=== PATIENT | female | born 1960 | race Caucasian/White ===

== ENCOUNTER 2020-08-05 07:40 | Outpatient (REF) | payer BC, SELFPAY ==
[2020-08-05 08:21] LABS: MANUAL DIFF FLAG NO
[2020-08-05 08:31] LABS: Basophils Absolute Auto 0.1 X10*3/uL (0.0-0.2); Basophils Percent Auto 1.2 % (0-2); Eosinophils Absolute Auto 0.2 X10*3/uL (0.0-0.4); Eosinophils Percent Auto 5.7 % (0-4); Hematocrit 40.8 % (37-47); Hemoglobin 13.5 g/dl (12.0-16.0); Imm Gran Abs Auto 0.01 X10*3/uL (0.00-0.03); Imm Gran Pct Auto 0.2 % (0.0-0.4); Lymphocytes Absolute Auto 0.7 X10*3/uL (1.2-4.9); Lymphocytes Percent Auto 18.2 % (20-40); Mean Corpuscular HGB Conc 33.1 g/dl (31.0-35.0); Mean Corpuscular Hemoglobin 31.3 pg (27.0-33.0); Mean Corpuscular Volume 94.4 fL (80-98); Mean Platelet Volume 9.7 fL (9.4-12.3); Monocytes Absolute Auto 0.3 X10*3/uL (0.1-1.2); Neutrophils Absolute Auto 2.7 X10*3/uL (2.0-8.3); Neutrophils Percent Auto 66.7 % (45-73); Platelet Count 256 X10*3/uL (160-400); Red Blood Count 4.32 X10*6/uL (4.20-5.50); Red Cell Distribution Width 13.6 % (11.0-16.0)
[2020-08-05 08:42] LABS: Glucose Urine UA NEG (NEG); Leukocyte Esterase Urine NEG (NEG); Nitrite Urine NEG (NEG); Specific Gravity - Urine 1.025 (1.005-1.025); Urine Blood NEG (NEG); Urine Ketones NEG (NEG); Urine Protein NEG (NEG-TRACE)
[2020-08-05 08:45] LABS: Appearance Urine CLEAR; Color Urine YELLOW
[2020-08-05 08:56] LABS: Estimated Average Glucose 103 mg/dL; Hemoglobin A1C 118.4068 umol/L; Hemoglobin A1c % 5.2 %
[2020-08-05 09:19] LABS: Alanine Aminotransferase 11 U/L (0-31); Albumin Level 4.4 g/dL (3.5-5.0); Alkaline Phosphatase 67 U/L (39-117); Anion Gap 13 (12-20); Aspartate Amino Transferase 19 U/L (5-31); Bilirubin Total 0.9 mg/dL (0.0-1.0); Blood Urea Nitrogen 12 mg/dL (9-16); Calcium 8.9 mg/dL (8.4-10.2); Carbon Dioxide 27 mmol/L (22-29); Chloride 105 mmol/L (96-108); Cholesterol 197 mg/dL; Estimated Glomerular Filt Rate > 60; Glucose Fasting 105 mg/dL (60-99); HDL Cholesterol 67 mg/dL; LDL Cholesterol Calculated 121 mg/dl; Potassium 4.3 mmol/L (3.3-5.1); Sodium 141 mmol/L (135-145); Total Protein 7.3 g/dL (6.5-8.0); Triglycerides 46 mg/dL
[2020-08-05 09:26] LABS: Vitamin D 25-OH Total 32.2 ng/mL (>30)
[2020-08-05 10:12] LABS: Creatinine Urine 102.07 mg/dL; Microalbum/Creatinine Ratio Ur 11.7 ug/mg cr
== END 2020-08-05 07:41 | disposition home or self-care (01) ==
LOC: HO.LAB 07:40
PROVIDERS: PCP Internal Medicine; Visit Provider Internal Medicine
DX: Z00.00 Encounter for general adult medical examination without abnormal findings (principal); E55.9 Vitamin D deficiency, unspecified; R73.03 Prediabetes
CPT/HCPCS: 36415; 80053; 80061; 81003; 82043; 82306; 83036; 85025

== ENCOUNTER 2020-08-11 07:46 | Outpatient (REF) | payer BC, SELFPAY ==
--- NOTE | ~2020-08-11 | MM_ITS ---
EXAMINATION: MM SCREENING DIGITAL BREAST TOMOSYNTHESIS, BILATERAL CLINICAL INFORMATION: Screening. Asymptomatic. The lifetime risk of breast cancer based on the Tyrer-Cuzick Model is 10%. COMPARISON: Mammography: 09/26/2018, 09/24/2017 TECHNIQUE: Digital breast tomosynthesis is performed in both the craniocaudal and mediolateral oblique views along with computer-aided detection (CAD). Synthesized 2D images are generated from the tomosynthesis. FINDINGS: There are scattered areas of fibroglandular density (ACR BI-RADS breast composition Category b). There are no significant masses, abnormal calcifications, or other abnormalities. The axilla and skin contours are unremarkable. MM/MM tomosynthesis screening BI IMPRESSION: No mammographic evidence of malignancy. ASSESSMENT: BI-RADS 1: Negative RECOMMENDATION: Routine annual mammography screening. This patient's information was entered into a reminder system with a target due date for their next mammogram.
== END 2020-08-11 07:47 | disposition home or self-care (01) ==
LOC: HO.MAMMO 07:46
PROVIDERS: Absent Provider Obstetrics & Gynecology; PCP Internal Medicine; Visit Provider Internal Medicine
DX: Z12.31 Encounter for screening mammogram for malignant neoplasm of breast (principal)
CPT/HCPCS: 77063; 77067

== ENCOUNTER 2020-11-14 10:25 | Outpatient (REF) | payer BC, SELFPAY ==
[2020-11-14 10:28] LABS: MANUAL DIFF FLAG NO
[2020-11-14 10:37] LABS: Eosinophils Absolute Auto 0.3 X10*3/uL (0.0-0.4); Eosinophils Percent Auto 6.9 % (0-4); Hematocrit 41.4 % (37-47); Hemoglobin 13.4 g/dl (12.0-16.0); Imm Gran Abs Auto 0.01 X10*3/uL (0.00-0.03); Imm Gran Pct Auto 0.2 % (0.0-0.4); Lymphocytes Absolute Auto 1.1 X10*3/uL (1.2-4.9); Mean Corpuscular HGB Conc 32.4 g/dl (31.0-35.0); Mean Corpuscular Hemoglobin 30.7 pg (27.0-33.0); Mean Corpuscular Volume 94.7 fL (80-98); Mean Platelet Volume 9.7 fL (9.4-12.3); Monocytes Absolute Auto 0.4 X10*3/uL (0.1-1.2); Monocytes Percent Auto 10.3 % (2-11); Neutrophils Absolute Auto 2.3 X10*3/uL (2.0-8.3); Neutrophils Percent Auto 54.6 % (45-73); Platelet Count 255 X10*3/uL (160-400); Red Blood Count 4.37 X10*6/uL (4.20-5.50); Red Cell Distribution Width 12.8 % (11.0-16.0); White Blood Count 4.2 X10*3/uL (4.8-10.8)
== END 2020-11-14 10:26 | disposition home or self-care (01) ==
LOC: HO.LNP 10:25
PROVIDERS: Visit Provider Internal Medicine
DX: D70.9 Neutropenia, unspecified (principal)
CPT/HCPCS: 85025

== ENCOUNTER 2021-08-18 10:31 | Outpatient (REF) | payer BC, SELFPAY ==
[2021-08-18 10:35] LABS: MANUAL DIFF FLAG NO
[2021-08-18 10:55] LABS: Basophils Absolute Auto 0.1 X10*3/uL (0.0-0.2); Basophils Percent Auto 1.4 % (0-2); Eosinophils Absolute Auto 0.2 X10*3/uL (0.0-0.4); Eosinophils Percent Auto 6.6 % (0-4); Hematocrit 41.3 % (37.0-47.0); Hemoglobin 13.8 g/dl (12.0-16.0); Imm Gran Abs Auto 0.01 X10*3/uL (0.00-0.03); Imm Gran Pct Auto 0.3 % (0.0-0.4); Lymphocytes Absolute Auto 0.7 X10*3/uL (1.2-4.9); Lymphocytes Percent Auto 20.2 % (20-40); Mean Corpuscular HGB Conc 33.4 g/dl (31.0-35.0); Mean Corpuscular Hemoglobin 31.4 pg (27.0-33.0); Mean Corpuscular Volume 94.1 fL (80.0-98.0); Mean Platelet Volume 10.5 fL (9.4-12.3); Monocytes Absolute Auto 0.4 X10*3/uL (0.1-1.2); Monocytes Percent Auto 9.9 % (2-11); Neutrophils Absolute Auto 2.2 x10*3/uL (2.0-8.3); Neutrophils Percent Auto 61.6 % (45-73); Platelet Count 243 X10*3/uL (160-400); Red Blood Count 4.39 X10*6/uL (4.20-5.50); Red Cell Distribution Width 12.7 % (11.0-16.0); White Blood Count 3.6 X10*3/uL (4.8-10.8)
[2021-08-18 10:59] LABS: Estimated Average Glucose 108 mg/dL; Hemoglobin A1c % 5.4 %
[2021-08-18 11:02] LABS: Appearance Urine CLEAR; Color Urine YELLOW; Glucose Urine UA NEG (NEG); Leukocyte Esterase Urine NEG (NEG); Nitrite Urine NEG (NEG); Urine Blood NEG (NEG); Urine Ketones NEG (NEG); Urine Protein NEG (NEG-TRACE)
[2021-08-18 11:05] LABS: Creatinine Urine 95.52 mg/dL; Microalbumin Urine < 5.0 mg/L
[2021-08-18 11:07] LABS: Alanine Aminotransferase 14 U/L (0-31); Albumin Level 4.4 g/dL (3.5-5.0); Alkaline Phosphatase 64 U/L (39-117); Anion Gap 13 (12-20); Aspartate Amino Transferase 21 U/L (5-31); Bilirubin Total 1.3 mg/dL (0.0-1.0); Blood Urea Nitrogen 19 mg/dL (9-16); Calcium 9.4 mg/dL (8.4-10.2); Carbon Dioxide 25 mmol/L (22-29); Chloride 104 mmol/L (96-108); Cholesterol 208 mg/dL; Estimated Glomerular Filt Rate > 60; Glucose Fasting 108 mg/dL (60-99); HDL Cholesterol 72 mg/dL; LDL Cholesterol Calculated 121 mg/dl; Potassium 4.2 mmol/L (3.3-5.1); Sodium 138 mmol/L (135-145); Total Protein 7.2 g/dL (6.5-8.0); Triglycerides 77 mg/dL
[2021-08-18 11:31] LABS: Vitamin D 25-OH Total 26.4 ng/mL (>30)
== END 2021-08-18 10:32 | disposition home or self-care (01) ==
LOC: HO.LNP 10:31
PROVIDERS: PCP Internal Medicine; Visit Provider Internal Medicine
DX: Z00.00 Encounter for general adult medical examination without abnormal findings (principal); R59.1 Generalized enlarged lymph nodes; E55.9 Vitamin D deficiency, unspecified; R73.03 Prediabetes; D70.9 Neutropenia, unspecified
CPT/HCPCS: 80053; 80061; 81003; 82043; 82306; 83036; 85025

== ENCOUNTER 2021-09-17 07:44 | Outpatient (REF) | payer BC, SELFPAY ==
--- NOTE | ~2021-09-17 | MM_ITS ---
EXAMINATION: MM SCREENING DIGITAL BREAST TOMOSYNTHESIS, BILATERAL CLINICAL INFORMATION: Screening. Asymptomatic. The lifetime risk of breast cancer based on the Tyrer-Cuzick Model is 11.7%. COMPARISON: Mammography: August 11, 2020 and studies dating back to December 16, 2011 TECHNIQUE: Digital breast tomosynthesis is performed in both the craniocaudal and mediolateral oblique views along with computer-aided detection (CAD). Synthesized 2D images are generated from the tomosynthesis. FINDINGS: There are scattered areas of fibroglandular density (ACR BI-RADS breast composition Category b). There are no significant masses, abnormal calcifications, or other abnormalities. MM/MM tomosynthesis screening BI IMPRESSION: There are no significant changes from prior study. ASSESSMENT: BI-RADS 1: Negative RECOMMENDATION: Routine annual mammography screening. This patient's information was entered into a reminder system with a target due date for their next mammogram.
== END 2021-09-17 07:45 | disposition home or self-care (01) ==
LOC: HO.MAMMO 07:44
PROVIDERS: Absent Provider Obstetrics & Gynecology; PCP Internal Medicine; Visit Provider Internal Medicine
DX: Z12.31 Encounter for screening mammogram for malignant neoplasm of breast (principal)
CPT/HCPCS: 77063; 77067

== ENCOUNTER 2021-09-21 11:59 | Outpatient (REF) | payer BC, SELFPAY ==
[2021-09-21 12:03] LABS: MANUAL DIFF FLAG NO
[2021-09-21 12:18] LABS: Basophils Percent Auto 0.9 % (0-2); Eosinophils Absolute Auto 0.3 X10*3/uL (0.0-0.4); Eosinophils Percent Auto 6.2 % (0-4); Hematocrit 42.4 % (37.0-47.0); Hemoglobin 14.1 g/dl (12.0-16.0); Imm Gran Abs Auto 0.01 X10*3/uL (0.00-0.03); Imm Gran Pct Auto 0.2 % (0.0-0.4); Lymphocytes Absolute Auto 1.1 X10*3/uL (1.2-4.9); Lymphocytes Percent Auto 26.3 % (20-40); Mean Corpuscular HGB Conc 33.3 g/dl (31.0-35.0); Mean Corpuscular Hemoglobin 31.5 pg (27.0-33.0); Mean Corpuscular Volume 94.6 fL (80.0-98.0); Mean Platelet Volume 10.5 fL (9.4-12.3); Monocytes Absolute Auto 0.5 X10*3/uL (0.1-1.2); Monocytes Percent Auto 11.1 % (2-11); Neutrophils Absolute Auto 2.4 x10*3/uL (2.0-8.3); Neutrophils Percent Auto 55.3 % (45-73); Platelet Count 241 X10*3/uL (160-400); Red Blood Count 4.48 X10*6/uL (4.20-5.50); Red Cell Distribution Width 12.9 % (11.0-16.0); White Blood Count 4.3 X10*3/uL (4.8-10.8)
== END 2021-09-21 12:00 | disposition home or self-care (01) ==
LOC: HO.LNP 11:59
PROVIDERS: PCP Internal Medicine; Visit Provider Internal Medicine
DX: D70.9 Neutropenia, unspecified (principal)
CPT/HCPCS: 85025

== ENCOUNTER 2022-08-23 10:53 | Outpatient (REF) | payer BC, SELFPAY ==
[2022-08-23 11:13] LABS: MANUAL DIFF FLAG NO
[2022-08-23 11:22] LABS: Basophils Percent Auto 0.9 % (0-2); Eosinophils Absolute Auto 0.2 X10*3/uL (0.0-0.4); Eosinophils Percent Auto 5.1 % (0-4); Hematocrit 41.8 % (37.0-47.0); Hemoglobin 13.8 g/dl (12.0-16.0); Imm Gran Abs Auto 0.01 X10*3/uL (0.00-0.03); Imm Gran Pct Auto 0.2 % (0.0-0.4); Lymphocytes Absolute Auto 0.9 X10*3/uL (1.2-4.9); Lymphocytes Percent Auto 20.7 % (20-40); Mean Corpuscular Hemoglobin 30.9 pg (27.0-33.0); Mean Corpuscular Volume 93.7 fL (80.0-98.0); Mean Platelet Volume 10.2 fL (9.4-12.3); Monocytes Absolute Auto 0.4 X10*3/uL (0.1-1.2); Monocytes Percent Auto 8.4 % (2-11); Neutrophils Absolute Auto 2.9 x10*3/uL (2.0-8.3); Neutrophils Percent Auto 64.7 % (45-73); Platelet Count 253 X10*3/uL (160-400); Red Blood Count 4.46 X10*6/uL (4.20-5.50); Red Cell Distribution Width 12.8 % (11.0-16.0); White Blood Count 4.5 X10*3/uL (4.8-10.8)
[2022-08-23 11:29] LABS: Estimated Average Glucose 105 mg/dL; Hemoglobin A1c % 5.3 %
[2022-08-23 11:30] LABS: Appearance Urine Clear; Color Urine Yellow; Glucose Urine UA Negative (Negative); Leukocyte Esterase Urine Trace (Negative); Nitrite Urine Negative (Negative); UMIC TRIGGER UACC YES; Urine Blood Negative (Negative); Urine Ketones Negative (Negative); Urine Protein Negative (Neg-Trace)
[2022-08-23 11:33] LABS: Bacteria Urine None Seen (None Seen); Hyaline Casts Urine 0-2 /LPF (0-2); Squamous Epithelial Cell Urine 0-2 /HPF (0-2); WBC Urine 0-5 /HPF (0-5)
[2022-08-23 11:39] LABS: Alanine Aminotransferase 17 U/L (0-31); Albumin Level 4.5 g/dL (3.5-5.0); Alkaline Phosphatase 69 U/L (39-117); Anion Gap 11 (12-20); Aspartate Amino Transferase 23 U/L (5-31); Bilirubin Total 1.5 mg/dL (0.0-1.0); Blood Urea Nitrogen 14 mg/dL (9-16); Calcium 9.5 mg/dL (8.4-10.2); Carbon Dioxide 29 mmol/L (22-29); Chloride 105 mmol/L (96-108); Cholesterol 230 mg/dL; Estimated Glomerular Filt Rate > 60; Glucose Fasting 92 mg/dL (60-99); HDL Cholesterol 75 mg/dL; LDL Cholesterol Calculated 145 mg/dl; Potassium 4.2 mmol/L (3.3-5.1); Sodium 141 mmol/L (135-145); Total Protein 7.4 g/dL (6.5-8.0); Triglycerides 51 mg/dL
[2022-08-23 11:53] LABS: Vitamin D 25-OH Total 23.2 ng/mL (>30)
[2022-08-23 12:08] LABS: Creatinine Urine 121.96 mg/dL; Microalbum/Creatinine Ratio Ur 4.9 ug/mg cr
== END 2022-08-23 10:54 | disposition home or self-care (01) ==
LOC: HO.LNP 10:53
PROVIDERS: Visit Provider Internal Medicine
DX: Z00.00 Encounter for general adult medical examination without abnormal findings (principal); E55.9 Vitamin D deficiency, unspecified; R73.03 Prediabetes; D70.9 Neutropenia, unspecified
CPT/HCPCS: 80053; 80061; 81001; 82043; 82306; 83036; 85025

== ENCOUNTER 2022-12-17 07:25 | Outpatient (REF) | payer BC, SELFPAY ==
--- NOTE | ~2022-12-17 | MM_ITS ---
EXAMINATION: MM SCREENING DIGITAL BREAST TOMOSYNTHESIS, BILATERAL CLINICAL INFORMATION: Screening. Asymptomatic. The lifetime risk of breast cancer based on the Tyrer-Cuzick Model is 9%. COMPARISON: Mammography: 09/17/2021, 08/11/2020, 09/26/2018 TECHNIQUE: Digital breast tomosynthesis is performed in both the craniocaudal and mediolateral oblique views along with computer-aided detection (CAD). Synthesized 2D images are generated from the tomosynthesis. FINDINGS: There are scattered areas of fibroglandular density (ACR BI-RADS breast composition Category b). There are no significant masses, abnormal calcifications, or other abnormalities. Parenchymal pattern is similar to prior studies. There is no developing density or architectural abnormality. The axilla and skin contours are unremarkable. No significant changes. MM/MM tomosynthesis screening BI IMPRESSION: No mammographic evidence of malignancy. ASSESSMENT: BI-RADS 1: Negative RECOMMENDATION: Routine annual mammography screening. This patient's information was entered into a reminder system with a target due date for their next mammogram.
== END 2022-12-17 07:26 | disposition home or self-care (01) ==
LOC: HO.MAMMO 07:25
PROVIDERS: PCP Internal Medicine; Referring Provider Obstetrics & Gynecology; Visit Provider Internal Medicine
DX: Z12.31 Encounter for screening mammogram for malignant neoplasm of breast (principal)
CPT/HCPCS: 77063; 77067

== ENCOUNTER 2023-08-22 11:41 | Outpatient (REF) | payer BC, SELFPAY ==
[2023-08-22 11:44] LABS: MANUAL DIFF FLAG NO
[2023-08-22 11:58] LABS: Basophils Absolute Auto 0.1 X10*3/uL (0.0-0.2); Basophils Percent Auto 1.4 % (0-2); Eosinophils Absolute Auto 0.2 X10*3/uL (0.0-0.4); Eosinophils Percent Auto 4.7 % (0-4); Hematocrit 41.4 % (37.0-47.0); Hemoglobin 13.8 g/dl (12.0-16.0); Imm Gran Abs Auto 0.01 X10*3/uL (0.00-0.03); Imm Gran Pct Auto 0.2 % (0.0-0.4); Lymphocytes Absolute Auto 0.9 X10*3/uL (1.2-4.9); Lymphocytes Percent Auto 20.8 % (20-40); Mean Corpuscular HGB Conc 33.3 g/dl (31.0-35.0); Mean Corpuscular Hemoglobin 31.5 pg (27.0-33.0); Mean Corpuscular Volume 94.5 fL (80.0-98.0); Mean Platelet Volume 10.2 fL (9.4-12.3); Monocytes Absolute Auto 0.4 X10*3/uL (0.1-1.2); Monocytes Percent Auto 9.3 % (2-11); Neutrophils Absolute Auto 2.7 x10*3/uL (2.0-8.3); Neutrophils Percent Auto 63.6 % (45-73); Platelet Count 281 X10*3/uL (160-400); Red Blood Count 4.38 X10*6/uL (4.20-5.50); Red Cell Distribution Width 13.2 % (11.0-16.0); White Blood Count 4.3 X10*3/uL (4.8-10.8)
[2023-08-22 11:59] LABS: Appearance Urine Clear; Color Urine Yellow; Glucose Urine UA Negative (Negative); Leukocyte Esterase Urine Negative (Negative); Nitrite Urine Negative (Negative); PH 5.5 (5.0-9.0); Urine Blood Negative (Negative); Urine Ketones Negative (Negative); Urine Protein Negative (Neg-Trace)
[2023-08-22 12:02] LABS: Bacteria Urine None Seen (None Seen); Hyaline Casts Urine 0-2 /LPF (0-2); RBC Urine 0-2 /HPF (0-2); Squamous Epithelial Cell Urine 0-2 /HPF (0-2); WBC Urine 0-5 /HPF (0-5)
[2023-08-22 12:13] LABS: Estimated Average Glucose 97 mg/dL
[2023-08-22 12:30] LABS: Alanine Aminotransferase 15 U/L (0-31); Albumin Level 4.3 g/dL (3.5-5.0); Alkaline Phosphatase 62 U/L (39-117); Anion Gap 12 (12-20); Aspartate Amino Transferase 23 U/L (5-31); Bilirubin Total 0.8 mg/dL (0.0-1.0); Blood Urea Nitrogen 18 mg/dL (9-16); Calcium 9.4 mg/dL (8.4-10.2); Carbon Dioxide 25 mmol/L (22-29); Chloride 106 mmol/L (96-108); Estimated Glomerular Filt Rate > 60; Glucose Fasting 94 mg/dL (60-99); Potassium 4.4 mmol/L (3.3-5.1); Sodium 139 mmol/L (135-145); Total Protein 7.2 g/dL (6.5-8.0)
[2023-08-22 12:36] LABS: Vitamin D 25-OH Total 31.6 ng/mL (>30)
[2023-08-22 13:15] LABS: Microalbum/Creatinine Ratio Ur 5.4 ug/mg cr (<30)
== END 2023-08-22 11:42 | disposition home or self-care (01) ==
LOC: HO.LNP 11:41
PROVIDERS: Visit Provider Internal Medicine
DX: Z00.00 Encounter for general adult medical examination without abnormal findings (principal); E55.9 Vitamin D deficiency, unspecified; R73.03 Prediabetes; D70.9 Neutropenia, unspecified
CPT/HCPCS: 80053; 81001; 82043; 82306; 82570; 83036; 85025

== ENCOUNTER 2023-08-29 11:09 | Outpatient (REF) | payer BC, SELFPAY ==
[2023-08-29 11:54] LABS: Cholesterol 213 mg/dL (<200); HDL Cholesterol 76 mg/dL (>40); LDL Cholesterol Calculated 127 mg/dL (<100); Triglycerides 50 mg/dL (<150)
== END 2023-08-29 11:10 | disposition home or self-care (01) ==
LOC: HO.LNP 11:09
PROVIDERS: Visit Provider Internal Medicine
DX: E78.00 Pure hypercholesterolemia, unspecified (principal)
CPT/HCPCS: 80061

== ENCOUNTER 2024-10-04 09:54 | Outpatient (REF) | payer OTHER, SELFPAY ==
[2024-10-04 09:58] LABS: MANUAL DIFF FLAG NO
[2024-10-04 10:16] LABS: Basophils Percent Auto 0.8 % (0-2); Eosinophils Absolute Auto 0.1 X10*3/uL (0.0-0.4); Eosinophils Percent Auto 1.9 % (0-4); Hematocrit 40.6 % (37.0-47.0); Hemoglobin 13.7 g/dl (12.0-16.0); Imm Gran Abs Auto 0.02 X10*3/uL (0.00-0.03); Imm Gran Pct Auto 0.4 % (0.0-0.4); Lymphocytes Absolute Auto 1.1 X10*3/uL (1.2-4.9); Lymphocytes Percent Auto 22.8 % (20-40); Mean Corpuscular HGB Conc 33.7 g/dl (31.0-35.0); Mean Corpuscular Hemoglobin 31.1 pg (27.0-33.0); Mean Corpuscular Volume 92.1 fL (80.0-98.0); Mean Platelet Volume 9.3 fL (9.4-12.3); Monocytes Absolute Auto 0.3 X10*3/uL (0.1-1.2); Monocytes Percent Auto 7.1 % (2-11); Neutrophils Absolute Auto 3.2 x10*3/uL (2.0-8.3); Platelet Count 400 X10*3/uL (160-400); Red Blood Count 4.41 X10*6/uL (4.20-5.50); Red Cell Distribution Width 12.7 % (11.0-16.0); White Blood Count 4.8 X10*3/uL (4.8-10.8)
[2024-10-04 10:30] LABS: Estimated Average Glucose 108 mg/dL; Hemoglobin A1C 131.1801 umol/L; Hemoglobin A1c % 5.4 % (<6.0); Total Hemoglobin (HGBA1C) 3671.5637 umol/L
[2024-10-04 10:41] LABS: Appearance Urine Clear; Color Urine Yellow; Glucose Urine UA Negative (Negative); Leukocyte Esterase Urine Trace (Negative); Nitrite Urine Negative (Negative); PH 5.5 (5.0-9.0); UMIC TRIGGER UACC YES; Urine Blood Negative (Negative); Urine Ketones Negative (Negative); Urine Protein Negative (Neg-Trace)
[2024-10-04 10:47] LABS: Alanine Aminotransferase 16 U/L (0-31); Albumin Level 4.2 g/dL (3.5-5.0); Alkaline Phosphatase 81 U/L (39-117); Anion Gap 14 (12-20); Aspartate Amino Transferase 28 U/L (5-31); Bilirubin Total 0.7 mg/dL (0.0-1.0); Blood Urea Nitrogen 13 mg/dL (9-16); Calcium 9.4 mg/dL (8.4-10.2); Carbon Dioxide 25 mmol/L (22-29); Chloride 107 mmol/L (96-108); Cholesterol 161 mg/dL (<200); Estimated Glomerular Filt Rate > 60; Glucose Fasting 98 mg/dL (60-99); HDL Cholesterol 48 mg/dL (>40); LDL Cholesterol Calculated 103 mg/dL (<100); Microalbum/Creatinine Ratio Ur 5.6 ug/mg cr (<30); Potassium 4.4 mmol/L (3.3-5.1); Sodium 142 mmol/L (135-145); Total Protein 7.6 g/dL (6.5-8.0); Triglycerides 50 mg/dL (<150)
[2024-10-04 11:19] LABS: Bacteria Urine 2+ (None Seen); Hyaline Casts Urine 0-2 /LPF (0-2); RBC Urine 0-2 /HPF (0-2); WBC Urine 0-5 /HPF (0-5)
--- OUTSIDE RECORDS SUMMARY | 2024-10-04 11:24 | XMS_ITS ---
Author Organization [facility] Address [address] [place] [address] Care Team Providers Care Rotary Shear Cutter Name Role Phone Rickie Spicer MD Primary Care Provider Rod Crain [facility] [phone] Social History Tobacco Use: Social History Observation Description Date Details (start date - stop date) Never Smoker NA - NA Tobacco Use/Smoking Question Answer Notes Are you a: nonsmoker Additional Findings: Tobacco Non-User Current no n-smoker Alcohol Screen Question Answer Notes Did you have a drink containing alcohol in the p ast year? Yes Points 0 Interpretation Negative Tobacco use other than smoking: Question Answer Notes Are you an other tobacco user? No Vital Signs Height 5 ft 2 in in 08/31/2023 Weight 131 lbs 08/31/2023 BMI 23.96 kg/m2 08/31/2023 Encounters Encounter Location Date Provider Diagnosis [facility] [address] [place] [address] 08/31/2023 Rod Srinivasan Plan Of Treatment No Information Progress Notes * PATSYGonzalezeDOB:1960 (64 yo F)Acc No.[id number]:08/31/2023 Progress Notes Patient:?Belle GARNER Provider:Arun Srinivasan DPM :1960???Age:63 Y???Sex:Female D ate:08/31/2023 [address] [place] [place] Pcp:Rickie Spicer MD Subjective: * Chief Complaints: * ??? * ROS:?General/Constitutional:?Nausea?denies.?Vomiting?denies.?Hunger Thirst?denies.?Loss appetite?denies.?Chills?denies.?Fatigue?denies.?Fever?denies.?Night Sweats?denies.?Unexplained weight loss?denies.?Unexplained weight gain?denies.?HEENTM:?Dentures?denies.?Dizziness?denies.?Glasses/contacts?denies.?Retinopathy?de nies.?Blurred/double vision?denies.?TMJ?denies.?Discharge/drainage?denies.?Implants?denies.?Sore throat?denies.?Dental implants?denies.?Hard of hearing ?denies.?Difficulty chewing/swallowing/speaking?denies.?Nose bleeds?denies.?Sore mouth?denies.?Respiratory:?On Oxygen?denies.?Pneumonia/pleurisy?denies.?Bronchitis?denies.?Emphysema?denies.?C oughing?denies.?Cough blood?denies.?Shortness of breath?denies.?Wheezing?denies.?Cardiovascular:?Pacemaker?denies.?MVP?denies.?WPW?denies.?CHF?denies.?Heart attack?denies.?Septal defect?denies.?Rapid beat?denies.?Chest pain ?denies.?Atrial Fib.?denies.?Murmur/Palpitations?denies.?Gastrointestinal:?Hemorrhoids?denies.?Stomach/Abdominal pain?denies.?Dark blood stool?denies.?Irritable bowel ?denies.?Constipation?denies.?Diarrhea?denies.?Hematology:?Swelling?denies.?Clots?denies.?Varicose Veins?denies.?Bruising?denies.?Bleeding problem?denies.?Genitourinary:?Blood urine?denies.?Frequent/Painfu/urination/bladder control?denies.?Kidney stones?denies.?Infection (UTI)?denies.?Nephropathy?denies.?sex trans dis (STD)?denies.?Prostate?denies.?Musculoskeletal:?Hammertoes?denies.?Bunions?admits.?Back Pain?denies.?Muscle Cramps/ Resting?denies.?Muscle cramps / walking?denies.?Generalized aches and pains?admits.?Weakness?denies.?Integ.:?Bustamante?denies.?Scars?denies.?Corns/calluses?denies.?Ingrown nails?denies.?Painful nails?denies.?Open Sores?denies.?Rashes?denies.?Neurologic:?Difficulty sleeping?denies.?Brain disorder?denies.?Numbness?denies.?Balance trouble?denies.?Confusion?denies.?Fainting/blackouts?denies.?Tingling?denies.?Tr emors?denies.? * Medical History:?Covid-19, M easles, Mumps, Chicken pox. * Family History:?Mother: dece ased, arthritis, stroke, cancer.?Father: , arthritis, stroke, cancer, high blood pressure.? * Social History:?Tobacco Use:?Tobacco Use/Smoking?Are you a:?nonsmoker ?Additional Findings: Tobacco Non-User?Current non-smoker ?Tobacco use other than smoking?Are you an other tobacco user??No ???Drugs/Alcohol:?Drugs?Have you used drugs other than those for medical reasons in the past 12 months??No ?Alcohol Screen?Did you have a drink containing alcohol in the past year??Yes ?Points?0 ?Interpretation?Negative ???Miscellaneous:?Caffeine: yes, frequency:, 2-3 cups per day. ?Children: yes, 2. ?Exercise: yes, walking. ?Marital status: . ?Occupation: [employer] - [employer]. Objective: * Vitals:?Ht: 5 ft 2 in, Wt:13 1, BMI:23.96, Shoe size: 7-7.5, Ht-cm: 157.48 cm, Wt-k.42 kg. Assessment: Plan: * Treatment: * Images: * The named appointment provid er may or may not be the originator of this progress note, and it is not deemed complete until electronically signed by the appointment provider. Sign off status: Pending * Provider:?Rod Srinivasan DPM Date:? 024 Generated for Louis vargas/Shree/Adarshitting on:?10/04/2024 11:23 AM EDT
--- OUTSIDE RECORDS SUMMARY | 2024-10-04 11:24 | XMS_ITS ---
Author Organization Rickie Spicer MD Address [address] [place] [phone] Care Team Providers Care Environmental Monitoring Specialist Name Role Phone Rickie Spicer Primary Care Provider [phone] Results Component Value Reference Range Notes Complete Blood Count Auto Di ff (Not yet reviewed by provider) Interpretation: Performing Lab:[facility], [address] [place] [id number] Notes/Report: White Blood Count 4.8 4.8-10.8 X10*3/uL Red Blood Count 4.41 4.20-5.50 X10*6/uL Hemoglobin 13.7 12.0-16.0 g/dl Hematocrit 40.6 37.0-47.0 % Mean Corpuscular Volume 92.1 80.0-98.0 fL Mean Corpuscular Hemoglobin 31.1 27.0-33.0 pg Mean Corpuscular HGB Conc 33.7 31.0-35.0 g/dl Red Cell Distribution Width 12.7 11.0-16.0 % Platelet Count 400 160-400 X10*3/uL Mean Platelet Volume 9.3 9.4-12.3 fL Neutrophils Percent Auto 67.0 45-73 % Imm Gran Pct Auto 0.4 0.0-0.4 % Lymphocytes Percent Auto 22.8 20-40 % Monocytes Percent Auto 7.1 2-11 % Eosinophils Percent Auto 1.9 0-4 % Basophils Percent Auto 0.8 0-2 % NRBC Pct Auto 0.0 0.0-0.2 /100WBC Neutrophils Absolute Auto 3.2 2.0-8.3 x10*3/u L Imm Gran Abs Auto 0.02 0.00-0.03 X10*3/uL Lymphocytes Absolute Auto 1.1 1.2-4.9 X10*3/u L Monocytes Absolute Auto 0.3 0.1-1.2 X10*3/uL Eosinophils Absolute Auto 0.1 0.0-0.4 X10*3/u L Basophils Absolute Auto 0.0 0.0-0.2 X10*3/uL NRBC Abs Auto 0.000 0.0-0.012 X10*3/uL Comprehensive [place]. Panel Fa (Not yet reviewed by provider) Interpretation: Performing Lab:[address] [phone] Notes/Report: Sodium 142 135-145 mmol/L Potassium 4.4 3.3-5.1 mmol/L Chloride 107 96-108 mmol/L Carbon Dioxide 25 22-29 mmol/L Anion Gap 14 12-20 Blood Urea Nitrogen 13 9-16 mg/dL Creatinine 0.69 0.5-1.4 mg/dL Estimated Glomerular Filt Rate > 60 Chronic Kidney Disease: Estimated GFR < 60 mL/min/1.73m2 Severe Kidney Disease: Estimated GFR < 15 mL/min/1.73m2 Glucose Fasting 98 60-99 mg/dL Calcium 9.4 8.4-10.2 mg/dL Bilirubin Total 0.7 0.0-1.0 mg/dL Aspartate Amino Transferase 28 5-31 U/L Alanine Aminotransferase 16 0-31 U/L Total Protein 7.6 6.5-8.0 g/dL Albumin Level 4.2 3.5-5.0 g/dL Alkaline Phosphatase 81 39-117 U/L Lipid Panel (Not yet reviewe d by provider) Interpretation: Performing Lab:[address] [phone] Notes/Report: Triglycerides 50 <150 mg/dL Desirable Triglyceride: less than 150 mg/dL Borderline High Triglyceride 150-199 mg/dL High Triglyceride: 200-499 mg/dL Very High Triglyceride: greater than or equal to 5OO mg/dL Cholesterol 161 <200 mg/dL Desirable Cholesterol: less than 200 mg/dL Borderline High Cholesterol: 200-239 mg/dL High Cholesterol: greater than 239 mg/dL LDL Cholesterol Calculated 103 <100 mg/dL Desirable LDL: less than 100 mg/dL Near Optimal/Above Optimal LDL: 110-129 mg/dL Borderline High LDL: 130-159 mg/dL High LDL: 160-189 mg/dL Very High LDL: greater than or equal to 190 mg/dL HDL Cholesterol 48 >40 mg/dL Desirable HDL: greater than 40 mg/dL Note: This HDL assay may give artificially low results in patients with liver disease. Vitamin D 25-OH Total (Not y et reviewed by provider) Interpretation: Performing Lab:[address] [phone] Notes/Report: Vitamin D 25-OH Total 31.0 >30 ng/mL Health Based Reference Values* < 20 ng/mL Deficient 20-30 ng/mL Insufficient > 30 ng/mL Sufficient *Yvonne BUITRAGO. N Engl J Med. 2007;357:266-280 There is no well-established upper level of normal vitamin D levels. Some laboratories use 50 ng/mL as an upper limit of normal. However, toxicity is patient-dependent and may occur at any level. Careful correlation with the patient's presentation is necessary and, if there is concern for vitamin D toxicity, treatment should be considered irrespective of the serum level. Care must be taken in interpreting Vitamin D results from different laboratories and methodologies. Published data demonstrated that results from patients undergoing hemodialysis may show a negative bias when tested with various automated 25-OH vitamin D assays when compared to LC-MS/MS. When testing samples from patients whose predominant form of Vitamin D is Vitamin D2, such as patients receiving Vitamin D2 supplementation, results that are subtherapeutic should be confirmed with another method such as LC-MS/MS. Microalbumin, Random (Not ye t reviewed by provider) Interpretation: Performing Lab:[address] [phone] Notes/Report: Creatinine Urine 160.30 Microalbumin Urine 9.0 Microalbum/Creatinine Ratio Ur 5.6 <30 ug/mg cr Albumin/Creatinine Ratio Reference Ranges: Normal: < 30 ug/mg creatinine Microalbuminuria: 30 - 300 ug/mg creatinine Clinical Albuminuria: > 300 ug/mg creatinine Hemoglobin A1c (Not yet revi ewed by provider) Interpretation: Performing Lab:[facility], [address] [place] [phone] Notes/Report: Hemoglobin A1c % 5.4 <6.0 % Hemoglobin A1C Reference Range Adults: 4.8 - 6.0 % Non diabetic: < 6.0 % Goal: < 7.0 % Additional Action Suggested: > 8.0 % Note: Hemoglobin A1c results are invalid for patients with abnormal amounts of HbF. Blood transfusions may impact the HbA1c concentration in the patient sample. Estimated Average Glucose 108 eAG = Estimated average glucose which is %A1C expressed as average glucose, using the formula of the W3U-Ldeyetk Average Glucose study (ADAG), Diabetes Care, Vol.31,#8, Jan. 2007 UA ClnCatch+Micro w/rflx Cul t (Not yet reviewed by provider) Interpretation: Performing Lab:[facility], [address] [place] [phone] Notes/Report: Urine, Clean Catch Color Urine Yellow Appearance Urine Clear PH 5.5 5.0-9.0 Glucose Urine UA Negative Negative mg/dL Urine Blood Negative Negative Specific Kaplan - Urine 1.020 1.005-1.025 Urine Protein Negative Neg-Trace mg/dL Urine Ketones Negative Negative mg/dL Nitrite Urine Negative Negative Leukocyte Esterase Urine Trace Negative RBC Urine 0-2 0-2 /HPF WBC Urine 0-5 0-5 /HPF Squamous Epithelial Cell Urine 3-5 0-2 /HPF Bacteria Urine 2+ None Seen Hyaline Casts Urine 0-2 0-2 /LPF REASON FOR VISIT yearly fasting labs Encounters Encounter Location Date Provider Diagnosis Rickie Spicer MD [address] [place] [address] Drive [address] [place], [place] [phone] 10/04/2024 Rickie Spicer Blood tests for rout ine general physical examination Z00.00 ; Vitamin D deficiency E55.9 ; Prediabetes R73.03 ; Neutropenia, unspecified type D70.9 and Hypercholesterolemia E78.00 Assessments Encounter Date Diagnosis (ICD Code) Assessment Notes Treatment Notes Treatment Clinical Notes Section Notes 10/04/2024 Blood tests for rout ine general physical examination (ICD-10 - Z00.00) 10/04/2024 Vitamin D deficiency (ICD-10 - E55.9) 10/04/2024 Prediabetes (ICD-10 - R73.03) 10/04/2024 Neutropenia, unspeci fied type (ICD-10 - D70.9) 10/04/2024 Hypercholesterolemia (ICD-10 - E78.00) Plan Of Treatment Pending Test Test Name Order Date Complete Blood Count Auto Diff Comprehensive [place]. Panel Fast Lipid Panel 10/04/2024 Vitamin D 25-OH Total 10/04/2024 Microalbumin, Random 10/04/2024 Hemoglobin A1c 10/04/2024 UA ClnCatch+Micro w/rflx Cult 10/04/2024 Next Appt Details Provider Name:Rickie Merlos ier, 10/25/2024 08:00:00 AM, [address] [place] [address], [address], [place], [place], [phone], Progress Notes * COY GARNEREDOB:1960 (64 yo F)Acc No.[id number]:10/04/2024 Progress Note Patient:?CATINA GARNER Provider:?Rickie Spicer MD :1960???Age:64 Y???Sex:Female D ate:10/04/2024 Address:[address] [place], [place] [id number] Subjective: * Chief Complaints: * ???1. Yearly fasting labs. * Medical History:? Objective: * Vitals:? Assessment: * Assessment: 1.?Blood tests for routine g eneral physical examination - Z00.00 (Primary)???2.?Vitamin D deficiency - E55.9???3.?Prediabetes - R73.03???4.?Neutropenia, unspecified type - D70.9???5.?Hypercholesterolemia - E78.00??? Plan: * Treatment: 2.?Vitamin D deficiency?LAB: Complete Blood Count Auto Diff (Collection Date & Time - 10/04/2024 07:00 AM) ?LAB: Comprehensive [facility]. Panel Fast (Collection Date & Time - 10/04/2024 07:00 AM) ?LAB: Lipid Panel (Collection Date & Time 10/04/2024 07:00 AM) ?LAB: Vitamin D 25-OH Total (Collection Date & Time - 10/04/2024 07:00 AM) ?LAB: Microalbumin, Random (Collection Date & Time 10/04/2024 07:00 AM) ?LAB: Hemoglobin A1c (Collection Date & Time 10/04/2024 07:00 AM) ?LAB: UA ClnCatch+Micro w/rflx Cult (Collection Date & Time 10/04/2024 07:00 AM) 3.?Prediabetes?LAB: Complete Blood Count Auto Diff (Collection Date & Time 10/04/2024 07:00 AM) ?LAB: Comprehensive [facility]. Panel Fast (Collection Date & Time 10/04/2024 07:00 AM) ?LAB: Lipid Panel (Collection Date & Time 10/04/2024 07:00 AM) ?LAB: Vitamin D 25-OH Total (Collection Date & Time 10/04/2024 07:00 AM) ?LAB: Microalbumin, Random (Collection Date & Time 10/04/2024 07:00 AM) ?LAB: Hemoglobin A1c (Collection Date & Time 10/04/2024 07:00 AM) ?LAB: UA ClnCatch+Micro w/rflx Cult (Collection Date & Time 10/04/2024 07:00 AM) 4.?Neutropenia, unspecified type?LAB: Complete Blood Count Auto Diff (Collection Date & Time - 10/04/2024 07:00 AM) ?LAB: Comprehensive [place]. Panel Fast (Collection Date & Time - 10/04/2024 07:00 AM) ?LAB: Lipid Panel (Collection Date & Time 10/04/2024 07:00 AM) ?LAB: Vitamin D 25-OH Total (Collection Date & Time - 10/04/2024 07:00 AM) ?LAB: Microalbumin, Random (Collection Date & Time - 10/04/2024 07:00 AM) ?LAB: Hemoglobin A1c (Collection Date & Time - 10/04/2024 07:00 AM) ?LAB: UA ClnCatch+Micro w/rflx Cult (Collection Date & Time - 10/04/2024 07:00 AM) 5.?Hypercholesterolemia?LAB: Complete Blood Count Auto Diff (Collection Date & Time - 10/04/2024 07:00 AM) ?LAB: Comprehensive [place]. Panel Fast (Collection Date & Time - 10/04/2024 07:00 AM) ?LAB: Lipid Panel (Collection Date & Time - 10/04/2024 07:00 AM) ?LAB: Vitamin D 25-OH Total (Collection Date & Time - 10/04/2024 07:00 AM) ?LAB: Microalbumin, Random (Collection Date & Time - 10/04/2024 07:00 AM) ?LAB: Hemoglobin A1c (Collection Date & Time - 10/04/2024 07:00 AM) ?LAB: UA ClnCatch+Micro w/rflx Cult (Collection Date & Time - 10/04/2024 07:00 AM) * Procedure Codes:?18939 VENIP UNCT, ROUTINE* * * The named appointment provid er may or may not be the originator of this progress note, and it is not deemed complete until electronically signed by the appointment provider. Sign off status: Pending * Provider:?Rickie Spicer MD Date:?0 10/04/2024 Generated for Louis vargas/Shree/eTbarbarasmitting on:?10/04/2024 11:24 AM EDT
--- OUTSIDE RECORDS SUMMARY | 2024-10-04 11:24 | XMS_ITS ---
Author Organization Rickie Spicer MD Address [address] [place] [phone] Care Team Providers Care Hull Molder Name Role Phone Rickie Spicer Primary Care Provider [phone] REASON FOR VISIT recent Rx prescribed Encounters Encounter Location Date Provider Diagnosis Rickie Spicer MD [address] [facility] [address] [place] [phone] 09/26/2024 Rickie Spicer Plan Of Treatment Next Appt Details Provider Name:Rickie Merlos ier, 10/25/2024 08:00:00 AM, [address] [place] [address], Suite [facility], [place], [place], [phone], Progress Notes * DAMIEN GARNEROB:1960 (64 yo F)Acc No.[id number]:09/26/2024 Patient:?PATSY CATINA :1960???Age:64 Y???Sex:Female Address:[address] [place] [address], [address] * true * Date:? Generated for Louis vargas/Shree/Sylvester on:?10/04/2024 11:24 AM EDT
--- OUTSIDE RECORDS SUMMARY | 2024-10-04 11:24 | XMS_ITS | Patient Health Record ---
Author Organization [facility] Address [address] [place] [address] Care Team Providers Care Digital Commentator Name Role Phone Dannielle ACOTSA, Rickie Primary Care Provider Rod Crain Unavailable [phone] Reason For Referral No Information Social History Tobacco Use: Social History Observation [...] Are you an other tobacco user? No Plan Of Treatment No Information Insurance Providers Payer Name Payer Address Payer Phone Subscriber Number Group Number Insured Name Patient Relationship to Insured Coverage Start Date Coverage End Date [facility] All Others [address] [place] [address] [phone] [id number] F [place] Self - patient is the insured Medical (General) History Medical History History ICD Code covid-19 Measles Mumps Chicken pox
--- OUTSIDE RECORDS SUMMARY | 2024-10-04 11:24 | XMS_ITS ---
Author Organization [facility] Address [address] [place] [address] Care Team Providers Care Supervisor Fish Processing Name Role Phone Rickie Spicer MD Primary Care Provider Rod Crain [phone] REASON FOR VISIT DEPARTMENTAL SECRETARY PPWK Entered Encounters Encounter Location Date Provider Diagnosis [facility] [address] [place] [address] 07/15/2023 Rod Srinivasan Plan Of Treatment No Information Progress Notes * AGUSTINAGonzalez ERVINeDOB:1960 (63 yo F)Acc No.[id number]:07/15/2023 Patient:?[place] :1960???Age:63 Y???Sex:Female Address:[address] [place] [address] * true * Date:? Generated for Printi ng/Faalbinog/eTransmitting on:?10/04/2024 11:24 AM EDT
--- OUTSIDE RECORDS SUMMARY | 2024-10-04 11:25 | XMS_ITS ---
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 Generated for Louis vargas/Shree/Adasrhitting on:?10/04/2024 11:24 AM EDT
--- OUTSIDE RECORDS SUMMARY | 2024-10-04 11:25 | XMS_ITS ---
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 Generated for Printi ng/Faalbinog/eTransmitting on:?10/04/2024 11:24 AM EDT
--- OUTSIDE RECORDS SUMMARY | 2024-10-04 11:25 | XMS_ITS | Patient Health Record ---
Author Organization Rickie Spicer MD Address [address] [place], [place] [phone] Care Team Providers Care Healthcare Liaison Name Role Phone Rickie Spicer Primary Care Provider Allergies No Known Allergies Results Component Value Reference Range Notes Complete Blood Count Auto Di ff (Not yet reviewed by provider) Interpretation: Performing Lab:[facility], [address] [place] [phone] Notes/Report: White Blood Count 4.8 4.8-10.8 X10*3/uL [...] NRBC Abs Auto 0.000 0.0-0.012 X10*3/uL Comprehensive [place]. Panel Fa (Not yet reviewed by provider) Interpretation: Performing Lab:[address] [phone] Notes/Report: Sodium 142 135-145 mmol/L Potassium 4.4 [...] yet reviewe d by provider) Interpretation: Performing Lab:[address] [phone] Notes/Report: Triglycerides 50 <150 mg/dL Desirable Triglyceride: [...] y et reviewed by provider) Interpretation: Performing Lab:[address] [phone] Notes/Report: Vitamin D 25-OH Total 31.0 >30 [...] method such as LC-MS/MS. Microalbumin, Random (Not y et reviewed by provider) Interpretation: Performing Lab:[facility], [address] [place] [phone] Notes/Report: Creatinine Urine 160.30 Microalbumin Urine 9.0 Microalbum/Creatinine Ratio Ur 5.6 <30 ug/mg cr Albumin/Creatinine Ratio Reference Ranges: Normal: < 30 ug/mg creatinine Microalbuminuria: 30 - 300 ug/mg creatinine Clinical Albuminuria: > 300 ug/mg creatinine Hemoglobin A1c (Not yet revi ewed by provider) Interpretation: Performing Lab:[facility], [address] [place] [phone] Notes/Report: Hemoglobin A1c % 5.4 <6.0 % [...] average glucose, using the formula of the G2K-Uofxdvx Average Glucose study (ADAG), Diabetes Care, Vol.31,#8, Jan. 2007 UA ClnCatch+Micro w/rflx Cul t (Not yet reviewed by provider) Interpretation: Performing Lab:[facility], [address] [place] [phone] Notes/Report: Urine, Clean Catch Color Urine Yellow Appearance Urine Clear PH 5.5 5.0-9.0 Glucose Urine UA Negative Negative mg/dL Urine Blood Negative Negative Specific [place] - Urine 1.020 1.005-1.025 Urine Protein Negative Neg-Trace mg/dL Urine Ketones Negative Negative mg/dL Nitrite Urine Negative Negative Leukocyte Esterase Urine Trace Negative RBC Urine 0-2 0-2 /HPF WBC Urine 0-5 0-5 /HPF Squamous Epithelial Cell Urine 3-5 0-2 /HPF Bacteria Urine 2+ None Seen Hyaline Casts Urine 0-2 0-2 /LPF Hold Gold (Not yet reviewed by provider) Interpretation: Performing Lab:[facility], [address] [place] [phone] Notes/Report: Hold Gold See Note Specimen held untested for 24 hours; Call to request Chemistry testing. Reason For Referral No Information Medications Medication SIG (Take, Route, Fr equency, Duration) Notes Start Date End Date Status Naproxen 250 MG 1 tablet with food o r milk Orally Twice a day for 30 day(s) Not-Taking Immunizations Vaccine Route Administration Date Status Comme nts Covid Vaccine Unknown 11/06/2020 Administered Pfizer Covid Vaccine Unknown 10/16/2020 Administered Pfizer SARS-COV-2 Pfizer Unknown 07/04/2021 Administered Fluarix Quadrivalent Unknown 05/30/2017 Refused Fluarix Quadrivalent Unknown 07/14/2017 Refused TDaP Unknown 09/12/2017 Refused Fluarix Quadrivalent Unknown 07/21/2018 Refused Fluarix Quadrivalent Unknown 07/30/2019 Refused Fluarix Quadrivalent Unknown 05/20/2020 Refused Fluarix Quadrivalent Unknown 08/15/2020 Refused PPSV23 (Pnemovax) Unknown 08/15/2020 Refused Fluarix Quadrivalent Unknown 08/24/2021 Refused Social History Tobacco Use: Social History Observation Description Date Details (start date - stop date) Never Smoker NA - NA Tobacco Use/Smoking Question Answer Notes Patient is a nonsmoker Additional Findings: Tobacco Non-User Cu rrent non-smoker, currently using no form of tobacco Alcohol Screen Question Answer Notes Did you have a drink contain ing alcohol in the past year? Yes How often did you have a dri nk containing alcohol in the past year? 4 or more times a week (4 points) How many drinks did you have on a typical day when you were drinking in the past year? 3 or 4 drinks (1 point) How often did you have 6 or more drinks on one occasion in the past year? Never (0 point) Points 5 Interpretation Positive Problems Problem Type SNOMED Code ICD Code Onset Dates Problem Status W/U Status Risk Notes Problem 04564532 Vitamin D defici ency (E55.9) Active confirmed Problem 14676430 Lymphadenopathy (R59.1) Active confirm ed Problem Neutropenia (772584750) Neutropenia, unspecified type (D70.9) Active confirmed Problem 645888889 Prediabetes (R73.03) Active confirmed Problem 15735611 Hypercholesterol emia (E78.00) Active confirmed Problem 97229096 Hyperplastic julio yp of sigmoid colon (K63.5) Active confirmed Encounters Encounter Location Date Provider Diagnosis Rickie Spicer MD [address] [place] [id number] 10/04/2024 Rickie Spicer Blood tests for rout ine general physical examination Z00.00 ; Vitamin D deficiency E55.9 ; Prediabetes R73.03 ; Neutropenia, unspecified type D70.9 and Hypercholesterolemia E78.00 Rickie Spicer MD [address] [place] [id number] 01/19/2024 Rickie Spicer MD [address] [place] [address] [place] [id number] 01/19/2024 Rickie Spicer MD [address] [place] [address] [place] [id number] 09/26/2024 Rickie Spicer Assessments Encounter Date Diagnosis (ICD Code) Assessment Notes Treatment Notes Treatment Clinical Notes Section Notes 10/04/2024 Blood tests for rout ine general physical examination (ICD-10 - Z00.00) 10/04/2024 Vitamin D deficiency (ICD-10 - E55.9) 10/04/2024 Prediabetes (ICD-10 - R73.03) 10/04/2024 Neutropenia, unspeci fied type (ICD-10 - D70.9) 10/04/2024 Hypercholesterolemia (ICD-10 - E78.00) Plan Of Treatment Pending Test Test Name Order Date Electrocardiogram (EKG) 07/14/2017 Electrocardiogram (EKG) 07/21/2018 Electrocardiogram (EKG) 08/03/2019 BONE DENSITY DEXA 08/03/2019 BONE DENSITY DEXA 07/21/2018 Complete Blood Count Auto Diff 5 Comprehensive [place]. Panel Fast Lipid Panel 10/04/2024 Vitamin D 25-OH Total 10/04/2024 Microalbumin, Random 10/04/2024 Hold Gold 10/04/2024 Hemoglobin A1c 10/04/2024 UA ClnCatch+Micro w/rflx Cult 10/04/2024 Next Appt Details Provider Name:Rickie Merlos ier, 10/25/2024 08:00:00 AM, [address] [place] [address], Suite [facility], [place], [place], [phone], Insurance Providers Payer Name Payer Address Payer Phone Subscriber Number Group Number Insured Name Patient Relationship to Insured Coverage Start Date Coverage End Date [address] [facility] [phone] [id number] CATINA GARNER Self - patient is the insured Medical (General) History Medical History History ICD Code 12/09/17 - colonoscopy by Dr. Flores (hyperplastic polyp repeat in 10yrs, 2027) lymphadenopathy ct of neck 2018 negative
== END 2024-10-04 09:55 | disposition home or self-care (01) ==
LOC: HO.LNP 09:54
PROVIDERS: Visit Provider Internal Medicine
DX: Z00.00 Encounter for general adult medical examination without abnormal findings (principal); E55.9 Vitamin D deficiency, unspecified; R73.03 Prediabetes; D70.9 Neutropenia, unspecified; E78.00 Pure hypercholesterolemia, unspecified
CPT/HCPCS: 80053; 80061; 81001; 82043; 82306; 82570; 83036; 85025

== ENCOUNTER 2024-10-11 11:47 | Outpatient (REF) | payer OTHER, SELFPAY ==
--- OUTSIDE RECORDS SUMMARY | 2024-10-11 14:41 | XMS_ITS ---
Author Organization [facility] Address [address] [place] [address] Care Team Providers Care Wood Milling Machine Operator Name Role Phone Rickie Spicer MD Primary Care Provider Rod Crain [facility] [phone] Social History Tobacco Use: Social History Observation [...] 08/31/2023 Encounters Encounter Location Date Provider Diagnosis [facility] [address] [place] [address] 08/31/2023 Rod Srinivasan Plan Of Treatment No Information Progress Notes * PATSYGonzalezeDOB:1960 (64 yo F)Acc No.[id number]:08/31/2023 Progress Notes Patient:?Belle GARNER Provider:Arun Srinivasan DPM :1960???Age:63 Y???Sex:Female D ate:08/31/2023 [address] [id number] Pcp:Rickie Spicer MD Subjective: * Chief Complaints: [...] ?Exercise: yes, walking. ?Marital status: . ?Occupation: [employer]. Objective: * Vitals:?Ht: [...] DPM Date:? 024 Generated for Louis vargas/Shree/Adarshitting on:?10/11/2024 02:40 PM EDT
--- OUTSIDE RECORDS SUMMARY | 2024-10-11 14:41 | XMS_ITS ---
Author Organization Rickie Spicer MD Address [address] [place] [phone] Care Team Providers Care Laborer Cook House Name Role Phone Rickie Spicer Primary Care Provider REASON FOR VISIT recent Rx prescribed Encounters Encounter Location Date Provider Diagnosis Rickie Spicer MD [address] [facility] [address] [place] [id number] 09/26/2024 Rickie Spicer Plan Of Treatment Next Appt Details Provider Name:Rickie Merlos ier, 10/25/2024 08:00:00 AM, [address] [place] [address], Suite [facility], [place], [place], [phone], Progress Notes * DAMIEN GARNEROB:1960 (64 yo F)Acc No.[id number]:09/26/2024 Patient:?PATSY CATINA :1960???Age:64 Y???Sex:Female Address:[address] [place] [address], [address] * true * Date:? Generated for Louis vargas/Shree/Sylvester on:?10/11/2024 02:41 PM EDT
--- OUTSIDE RECORDS SUMMARY | 2024-10-11 14:42 | XMS_ITS | Patient Health Record ---
Author Organization [facility] Address [address] [place] [address] Care Team Providers Care Veneer Joiner Name Role Phone Dannielle ACOSTA, Rickie Primary Care Provider Rod Crain Unavailable [phone] Reason For Referral No Information Social History [...] Insured Coverage Start Date Coverage End Date [facility] [employer] Others [address] [place] [address] [phone] [id number] F [place] Self - patient is the insured Medical (General) History Medical History History ICD Code covid-19 Measles Mumps Chicken pox
--- OUTSIDE RECORDS SUMMARY | 2024-10-11 14:42 | XMS_ITS ---
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 Generated for Louis vargas/Shree/Adarshitting on:?10/11/2024 02:42 PM EDT
--- OUTSIDE RECORDS SUMMARY | 2024-10-11 14:42 | XMS_ITS ---
Author Organization Rickie Spicer MD Address [address] [place] [phone] Care Team Providers Care Heel Compressor Name Role Phone Rickie Spicer Primary Care Provider Results Component Value Reference Range Notes Complete Blood Count Auto Di ff Reviewed date:10/04/2024 06:21:54 PM Interpretation: Performing Lab:[facility], [address] [place] [phone] Notes/Report: White Blood Count 4.8 4.8-10.8 X10*3/uL [...] NRBC Abs Auto 0.000 0.0-0.012 X10*3/uL Comprehensive [place]. Panel Fa st Reviewed date:10/04/2024 06:40:44 PM Interpretation: Performing Lab:[facility], [address] [place] [phone] Notes/Report: Sodium 142 135-145 mmol/L Potassium 4.4 [...] Alkaline Phosphatase 81 39-117 U/L Lipid Panel Reviewed date:10/04/2024 06:14:10 PM Interpretation: Performing Lab:[facility], [address] [place] [phone] Notes/Report: Triglycerides 50 <150 mg/dL Desirable Triglyceride: [...] with liver disease. Vitamin D 25-OH Total Reviewed date:10/04/2024 06:23:06 PM Interpretation: Performing Lab:[facility], [address] [place] [phone] Notes/Report: Vitamin D 25-OH Total 31.0 >30 [...] another method such as LC-MS/MS. Microalbumin, Random Reviewed date:10/04/2024 06:14:38 PM Interpretation: Performing Lab:[facility], [address] [place] [phone] Notes/Report: Creatinine Urine 160.30 Microalbumin Urine 9.0 Microalbum/Creatinine Ratio Ur 5.6 <30 ug/mg cr Albumin/Creatinine Ratio Reference Ranges: Normal: < 30 ug/mg creatinine Microalbuminuria: 30 - 300 ug/mg creatinine Clinical Albuminuria: > 300 ug/mg creatinine Hemoglobin A1c Reviewed date:10/04/2024 06:20:24 PM Interpretation: Performing Lab:[facility], [address] [place] [phone] Notes/Report: Hemoglobin A1c % 5.4 <6.0 % [...] average glucose, using the formula of the [id number]-Zxffyrl Average Glucose study (ADAG), Diabetes Care, Vol.31,#8, Jan. 2007 UA ClnCatch+Micro w/rflx Cul t Reviewed date:10/04/2024 06:40:58 PM Interpretation: Performing Lab:[facility], [address] [place] [phone] Notes/Report: Urine, Clean Catch Color Urine Yellow Appearance Urine Clear PH 5.5 5.0-9.0 Glucose Urine UA Negative Negative mg/dL Urine Blood Negative Negative Specific [place] - Urine 1.020 1.005-1.025 Urine Protein Negative [...] Location Date Provider Diagnosis Rickie Spicer MD [address] [place] [address] Drive [address] [place], [place] [phone] 10/04/2024 Rickie Spicer Blood tests for rout ine general physical examination Z00.00 ; Vitamin D deficiency E55.9 ; Prediabetes R73.03 ; Neutropenia, unspecified type D70.9 and Hypercholesterolemia E78.00 Assessments Encounter Date Diagnosis (ICD Code) Assessment Notes Treatment Notes Treatment Clinical Notes Section Notes 10/04/2024 Blood tests for seng blackman general physical examination (ICD-10 - Z00.00) 10/04/2024 Vitamin D deficiency (ICD-10 - E55.9) 10/04/2024 Prediabetes (ICD-10 - R73.03) 10/04/2024 Neutropenia, unspeci fied type (ICD-10 - D70.9) 10/04/2024 Hypercholesterolemia (ICD-10 - E78.00) Plan Of Treatment Next Appt Details Provider Name:Rickie jansenr, 10/25/2024 08:00:00 AM, [address] [place] [address], [address], [place], [place], [phone], Progress Notes * DAMIEN GARNEROB:1960 (64 yo F)Acc No.[id number]:10/04/2024 Progress Note Patient:?CATINA GARNER Provider:?Rickie Spicer MD :1960???Age:64 Y???Sex:Female D ate:10/04/2024 Address:[address] [place], [place] [phone] Subjective: * Chief Complaints: * ???1. Yearly fasting labs. * Medical History:? Objective: * Vitals:? Assessment: * Assessment: 1.?Blood tests for routine g eneral physical examination - Z00.00 (Primary)???2.?Vitamin D deficiency - E55.9???3.?Prediabetes - R73.03???4.?Neutropenia, unspecified type - D70.9???5.?Hypercholesterolemia - E78.00??? Plan: * Treatment: 2.?Vitamin D deficiency?LAB: Complete Blood Count Auto Diff (Collection Date & Time - 10/04/2024 07:00 AM) ?LAB: [facility] [place]. Panel Fast (Collection Date & Time - [...] & Time 10/04/2024 07:00 AM) ?LAB: Comprehensive [place]. Panel Fast (Collection Date & Time 10/04/2024 [...] Time - 10/04/2024 07:00 AM) ?LAB: Comprehensive [place]. Panel Fast (Collection Date & Time 10/04/2024 [...] Time - 10/04/2024 07:00 AM) ?LAB: Comprehensive [place]. Panel Fast (Collection Date & Time - [...] Time - 10/04/2024 07:00 AM) * Procedure Codes:?46796 VENIP UNCT, ROUTINE* * * The named appointment provid er may or may not be the originator of this progress note, and it is not deemed complete until electronically signed by the appointment provider. Sign off status: Pending * Provider:?Rickie Spicer MD Date:?0 10/04/2024 Generated for Louis vargas/Shree/eTransmitting on:?10/11/2024 02:41 PM EDT
--- OUTSIDE RECORDS SUMMARY | 2024-10-11 14:42 | XMS_ITS ---
Author Organization [facility] Address [address] [place] [address] Care Team Providers Care Federal Appellate Clerk Name Role Phone Rickie Spicer MD Primary Care Provider Rod Crain [phone] REASON FOR VISIT STOCKROOM COORDINATOR PPWK Entered Encounters Encounter Location Date Provider Diagnosis [facility] [address] [place] [address] 07/15/2023 Rod Srinivasan Plan Of Treatment No Information Progress Notes * AGUSTINAGonzalez ERVINeDOB:1960 (63 yo F)Acc No.[id number]:07/15/2023 Patient:?[place] :1960???Age:63 Y???Sex:Female Address:[address] [place] [address] * true * Date:? Generated for Printi ng/Faalbinog/eTransmitting on:?10/11/2024 02:42 PM EDT
--- OUTSIDE RECORDS SUMMARY | 2024-10-11 14:43 | XMS_ITS | Patient Health Record ---
Author Organization Rickie Spicer MD Address [address] [place], [place] [phone] Care Team Providers Care Engineer Station Mainline Name Role Phone Rickie Spicer Primary Care Provider Allergies No Known Allergies Results Component Value Reference Range Notes Complete Blood Count Auto Di ff Reviewed date:10/04/2024 06:21:54 PM Interpretation: Performing Lab:[facility], [address] [place] [phone] Notes/Report: White Blood Count 4.8 4.8-10.8 X10*3/uL [...] NRBC Abs Auto 0.000 0.0-0.012 X10*3/uL Comprehensive [place]. Panel Fa st Reviewed date:10/04/2024 06:40:44 PM Interpretation: Performing Lab:[facility], [address] [place] [phone] Notes/Report: Sodium 142 135-145 mmol/L Potassium 4.4 [...] Panel Reviewed date:10/04/2024 06:14:10 PM Interpretation: Performing Lab:[facility], [address] [place] [phone] Notes/Report: Triglycerides 50 <150 mg/dL Desirable Triglyceride: [...] Total Reviewed date:10/04/2024 06:23:06 PM Interpretation: Performing Lab:[facility], [address] [place] [phone] Notes/Report: Vitamin D 25-OH Total 31.0 >30 [...] Random Reviewed date:10/04/2024 06:14:38 PM Interpretation: Performing Lab:[facility], [address] [place] [phone] Notes/Report: Creatinine Urine 160.30 Microalbumin Urine 9.0 Microalbum/Creatinine Ratio Ur 5.6 <30 ug/mg cr Albumin/Creatinine Ratio Reference Ranges: Normal: < 30 ug/mg creatinine Microalbuminuria: 30 - 300 ug/mg creatinine Clinical Albuminuria: > 300 ug/mg creatinine Hemoglobin A1c Reviewed date:10/04/2024 06:20:24 PM Interpretation: Performing Lab:[facility], [address] [place] [phone] Notes/Report: Hemoglobin A1c % 5.4 <6.0 % [...] average glucose, using the formula of the J6R-Abflrjj Average Glucose study (ADAG), Diabetes Care, Vol.31,#8, Jan. 2007 UA ClnCatch+Micro w/rflx Cul t Reviewed date:10/04/2024 06:40:58 PM Interpretation: Performing Lab:[facility], [address] [place] [phone] Notes/Report: Urine, Clean Catch Color Urine Yellow Appearance Urine Clear PH 5.5 5.0-9.0 Glucose Urine UA Negative Negative mg/dL Urine Blood Negative Negative Specific [place] - Urine 1.020 1.005-1.025 Urine Protein Negative Neg-Trace mg/dL Urine Ketones Negative Negative mg/dL Nitrite Urine Negative Negative Leukocyte Esterase Urine Trace Negative RBC Urine 0-2 0-2 /HPF WBC Urine 0-5 0-5 /HPF Squamous Epithelial Cell Urine 3-5 0-2 /HPF Bacteria Urine 2+ None Seen Hyaline Casts Urine 0-2 0-2 /LPF Hold Gold Reviewed date:10/04/2024 06:27:20 PM Interpretation: Performing Lab:[facility], [address] [place] [phone] Notes/Report: Hold Gold See Note Specimen held [...] Problem Status W/U Status Risk Notes Problem 55415464 Vitamin D defici ency (E55.9) Active confirmed Problem 74858275 Lymphadenopathy (R59.1) Active confirm ed Problem Neutropenia (106281957) Neutropenia, unspecified type (D70.9) Active confirmed Problem 235472358 Prediabetes (R73.03) Active confirmed Problem 00869750 Hypercholesterol emia (E78.00) Active confirmed Problem 03478136 Hyperplastic julio yp of sigmoid colon (K63.5) Active confirmed Encounters Encounter Location Date Provider Diagnosis Rickie Spicer MD [address] [place] [id number] 10/04/2024 Rickie Spicer Blood tests for rout ine general physical examination Z00.00 ; Vitamin D deficiency E55.9 ; Prediabetes R73.03 ; Neutropenia, unspecified type D70.9 and Hypercholesterolemia E78.00 Rickie Spicer MD [address] [place] [address] [place] [id number] 01/19/2024 Rickie Spicer MD [address] [place] [id number] 01/19/2024 Rickie Spicer MD [address] [place] [address] Drive [address] [place] [id number] 09/26/2024 Rickie Spicer Assessments Encounter Date Diagnosis [...] DENSITY DEXA 08/03/2019 BONE DENSITY DEXA 07/21/2018 Next Appt Details Provider Name:Rickie valenzuela, 10/25/2024 08:00:00 AM, [address] [facility], [address] [facility], [place], [place], [phone], Insurance Providers Payer Name Payer Address Payer Phone Subscriber Number Group Number Insured Name Patient Relationship to Insured Coverage Start Date Coverage End Date [address] [employer] [id number] CATINA GARNER Self - patient is the insured Medical (General) History Medical History History ICD Code 12/09/17 - colonoscopy by Dr. Flores (hyperplastic polyp repeat in 10yrs, 2027) lymphadenopathy ct of neck 2018 negative
--- OUTSIDE RECORDS SUMMARY | 2024-10-11 14:43 | XMS_ITS ---
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 Generated for Printi ng/Faalbinog/eTransmitting on:?10/11/2024 02:42 PM EDT
== END 2024-10-11 11:48 | disposition home or self-care (01) ==
LOC: HO.MAMMO 11:47
PROVIDERS: PCP Internal Medicine; Visit Provider Internal Medicine
DX: Z12.31 Encounter for screening mammogram for malignant neoplasm of breast (principal)
CPT/HCPCS: 77063; 77067

== ENCOUNTER → 2024-10-11 12:15 | Outpatient (BNV) | payer OTHER, SELFPAY | PROVIDERS: PCP Internal Medicine; Visit Provider Internal Medicine | DX: Z12.31 Encounter for screening mammogram for malignant neoplasm of breast (principal) | CPT/HCPCS: 77063; 77067 ==